=== PATIENT | male | born 1980 | race Caucasian/White ===

== ENCOUNTER 2018-02-08 19:07 | Emergency (ER) | payer MEDICAID, OTHER ==
--- NOTE | 2018-02-08 19:35 | C.PDOC ---
History Of Present Illness 37 year old male presents to the ED for evaluation of chest discomfort which has been intermittent for the past 2-3 days. Patient reports history of belching. He states the pain seems to be coming from his stomach. He denies fever, chills, and has no other complaints at this time. Chief Complaint (Nursing): Chest Pain History Per: Patient History/Exam Limitations: no limitations Onset/Duration Of Symptoms: Days (2-3), Intermittent Episodes Current Symptoms Are (Timing): Still Present Quality: Other (discomfort ) Additional History Per: Patient Past Medical History Reviewed: Historical Data, Nursing Documentation, Vital Signs Vital Signs: Last Vital Signs Temp 98 F 02/08/18 20:56 Pulse 97 H 02/08/18 20:56 Resp 19 02/08/18 20:56 BP 156/58 H 02/08/18 20:56 Pulse Ox 98 02/08/18 20:56 - Medical History PMH: Asthma, Back Problems Surgical History: No Surg Hx Family History: States: Unknown Family Hx - Social History Hx Tobacco Use: No Hx Alcohol Use: No Hx Substance Use: No - Immunization History Hx Tetanus Toxoid Vaccination: No Hx Influenza Vaccination: No Hx Pneumococcal Vaccination: No Review Of Systems Constitutional: Negative for: Fever, Chills Cardiovascular: Positive for: Other (chest discomfort ) Physical Exam - Physical Exam Appears: Non-toxic, No Acute Distress, Other (markedly obese ) Skin: Normal Color, Warm, Dry Head: Atraumatic, Normacephalic Eye(s): bilateral: Normal Inspection Oral Mucosa: Moist Neck: Supple Chest: Symmetrical, No Deformity, No Tenderness Cardiovascular: Rhythm Regular, No Murmur Respiratory: Normal Breath Sounds, No Rales, No Rhonchi, No Wheezing Gastrointestinal/Abdominal: Soft, No Tenderness, No Guarding, No Rebound Extremity: Normal ROM, Capillary Refill (less than 2 seconds ) Neurological/Psych: Oriented x3, Normal Speech, Normal Cognition Gait: Steady ED Course And Treatment - Laboratory Results Result Diagrams: 02/08/18 19:57 02/08/18 19:57 ECG: Interpreted By Me, Viewed By Me ECG Rhythm: Sinus Tachycardia, Nonspecific Changes ECG Interpretation: Abnormal Interpretation Of ECG: Sinus tachycardia, t wave flattening lateral leads, abnormal tracings Rate From EC O2 Sat by Pulse Oximetry: 99 (on RA) Pulse Ox Interpretation: Normal Progress Note: Bloodwork and EKG ordered and reviewed. Disposition Counseled Patient/Family Regarding: Diagnosis - Disposition Referrals: [facility] [Outside] Disposition: HOME/ ROUTINE Disposition Time: 21:31 Condition: STABLE Prescriptions: Pantoprazole Sodium [Protonix] 40 mg PO DAILY #14 ect Sucralfate [Carafate] 1 gm PO BID #20 tab Instructions: Acid Reflux (Gastroesophageal Reflux Disease), Adult (DC) Forms: [employer] (Guyanese) - POA Present On Arrival: None - Clinical Impression Clinical Impression: GERD (gastroesophageal reflux disease) - Scribe Statement The provider has reviewed the documentation as recorded by the Scribe (Griselda Wei) Provider Attestation: All medical record entries made by the Scribe were at my direction and personally dictated by me. I have reviewed the chart and agree that the record accurately reflects my personal performance of the history, physical exam, medical decision making, and the department course for this patient. I have also personally directed, reviewed, and agree with the discharge instructions and disposition.
[2018-02-08 20:00] LABS: BASO # 0.1 K/uL (0.0-0.2); BASO % 0.6 % (0.0-2.0); EOS # 0.1 K/uL (0.0-0.7); EOS % 0.5 % (0.0-4.0); HEMOGLOBIN 15.1 g/dL (12.0-18.0); LYMPH # 2.5 K/uL (1.0-4.3); LYMPH % 25.1 % (20.0-40.0); MEAN CELL VOLUME 84.5 fL (80.0-94.0); MEAN CORPUSCULAR HGB CONC 34.4 g/dL (33.0-37.0); MEAN PLATELET VOLUME 8.1 fL (7.2-11.7); MONO # 0.7 K/uL (0.0-0.8); NEUT # 6.6 K/uL (1.8-7.0); NEUT % 66.8 % (50.0-75.0); RBC 5.2 Mil/uL (4.40-5.90); RED CELL DISTRIBUTION WIDTH 14.1 % (11.5-14.5); WHITE BLOOD COUNT 9.8 K/uL (4.8-10.8)
[2018-02-08 20:12] LABS: ALB/GLOB RATIO 1.2 (1.0-2.1); ALBUMIN 5.1 g/dL (3.5-5.0); ALT/SGPT 88 U/L (21-72); AST/SGOT 54 U/L (17-59); BLOOD UREA NITROGEN 12 mg/dL (9-20); CALCIUM 9.6 mg/dl (8.6-10.4); GFR AFRICAN-AMERICAN > 60; GFR NON-AFRICAN AMERICAN > 60; LIPASE 115 U/L (23-300)
[2018-02-08] MEDS ORDERED: Pantoprazole 40 mg EC Tab PO STA (20:42)
[2018-02-08] MEDS ORDERED: Sucralfate 1 gm/10 ml Oral Susp UD PO STA (20:44)
[2018-02-08] MEDS ORDERED: Sucralfate 1 gm/10 ml Oral Susp UD ONE (20:50)
[2018-02-08] MEDS ORDERED: Pantoprazole 40 mg EC Tab PO ONE (20:50)
[2018-02-08 20:58] VITALS: BP 156/58; PULSE 97; RESP 19; TEMP 98
[2018-02-08 21:34] VITALS: O2SAT 99
--- NOTE | 2018-02-09 12:02 | CARD ---
APPROVED REPORT EKG Measurement Heart [id number] <Conclusion> Sinus tachycardia Nonspecific T wave abnormality Abnormal ECG
== END 2018-02-08 21:46 | disposition home or self-care (01) ==
LOC: C.ER 19:07
DX: K21.9 Gastro-esophageal reflux disease without esophagitis (principal)

== ENCOUNTER 2018-11-02 11:43 | Inpatient (IN) | payer MEDICAID ==
[2018-11-02] MEDS ORDERED: Aspirin 325 mg EC Tablets PO STA (13:12)
[2018-11-02] MEDS ORDERED: Aspirin 325 mg EC Tablets PO ONE (13:48)
--- NOTE | 2018-11-02 13:49 | RAD ---
Date of service: 11/02/2018 PROCEDURE: CHEST RADIOGRAPH, 1 VIEW HISTORY: SOB COMPARISON: None available. FINDINGS: LUNGS: Evaluation technically limited due to patient body habitus. Right apex obscured by patient's mandible. PLEURA: No pneumothorax or pleural fluid seen. CARDIOVASCULAR: No aortic atherosclerotic calcification present. Normal. OSSEOUS STRUCTURES: No significant abnormalities. VISUALIZED UPPER ABDOMEN: Normal. OTHER FINDINGS: None. IMPRESSION: No active disease.
[2018-11-02 14:44] LABS: BASO % 0.3 % (0.0-2.0); EOS % 0.3 % (0.0-4.0); LYMPH # 1.8 K/uL (1.0-4.3); LYMPH % 22.9 % (20.0-40.0); MEAN CORPUSCULAR HEMOGLOBIN 29.4 pg (27.0-31.0); MEAN CORPUSCULAR HGB CONC 33.9 g/dL (33.0-37.0); MEAN PLATELET VOLUME 8.3 fL (7.2-11.7); MONO # 0.5 K/uL (0.0-0.8); MONO % 6.2 % (0.0-10.0); NEUT # 5.5 K/uL (1.8-7.0); NEUT % 70.3 % (50.0-75.0); NRBC % 0.1 % (0.0-2.0); RBC 5.11 Mil/uL (4.40-5.90); RED CELL DISTRIBUTION WIDTH 14.1 % (11.5-14.5); WHITE BLOOD COUNT 7.8 K/uL (4.8-10.8)
[2018-11-02 14:46] LABS: MEAN CELL VOLUME 86.7 fL (80.0-94.0)
[2018-11-02 15:04] LABS: ALB/GLOB RATIO 1.3 (1.0-2.1); ALBUMIN 4.6 g/dL (3.5-5.0); ALT/SGPT 57 U/L (21-72); AST/SGOT 48 U/L (17-59); BLOOD UREA NITROGEN 12 mg/dL (9-20); CALCIUM 9.2 mg/dl (8.6-10.4); GFR NON-AFRICAN AMERICAN > 60
[2018-11-02 15:07] LABS: SQUAMOUS EPITHIAL < 1 /hpf (0-5); URINE BILIRUBIN NEGATIVE (NEGATIVE); URINE BLOOD NEGATIVE (NEGATIVE); URINE CLARITY Clear (Clear); URINE COLOR Yellow (YELLOW); URINE GLUCOSE (UA) NORMAL (Normal); URINE LEUKOCYTE ESTERASE NEG Leu/uL (Negative); URINE PROTEIN NEGATIVE (NEGATIVE); URINE UROBILINOGEN NORMAL mg/dL (0.2-1.0)
[2018-11-02 15:15] LABS: B-TYPE NATRIURETIC PEPTIDE 48.8 pg/mL (0-450)
[2018-11-02 15:16] LABS: BARBITURATES, UR NEGATIVE (NEGATIVE); BENZODIAZEPINES, UR NEGATIVE (NEGATIVE); OPIATES, UR NEGATIVE (NEGATIVE); PHENCYCLIDINE, UR NEGATIVE (NEGATIVE)
[2018-11-02 15:42] LABS: INR 1.1; PROTHROMBIN TIME 11.6 SECONDS (9.7-12.2)
[2018-11-02 15:50] VITALS: BMI 63.1
[2018-11-02] MEDS ORDERED: Iohexol 350mg/ml 100 ML ONE (15:57)
--- NOTE | 2018-11-02 17:30 | CT ---
Date of service: 11/02/2018 CTA chest PE protocol Indication: sob, + d-dimer Technique: Contiguous axial images were obtained through the chest with intravenous contrast enhancement. Sagittal and coronal reconstructions were generated and reviewed. This CT exam was performed using 1 or more of the following dose reduction techniques: Automated exposure control, adjustment of the MAA and/or kV according to patient size, and/or use of iterative reconstruction technique. IV contrast: 100 cc Visipaque 320 Radiation dose (DLP): 566.11 MGy-cm. Comparison: Chest x-ray performed 11/02/18 Findings: Examination limited by patient motion, habitus, as well as streak artifact. Please note patient experienced episode of emesis following injection of IV contrast. Visualized portions of the inferior thyroid gland appear unremarkable. The mediastinal and hilar vascular structures appear within normal limits. The heart appears within normal limits of size. There is suboptimal opacification of the pulmonary arteries as well extensive streak artifact precludes adequate evaluation for pulmonary embolus. Hypoinflation. No focal consolidation. No pleural effusion. No pneumothorax. 14 mm probable splenule. Limited visualized portions of the upper abdomen appear otherwise grossly unremarkable. No acute osseous abnormality is detected. Impression: Examination limited by patient motion, habitus, as well as streak artifact. Please note patient experienced episode of emesis following injection of IV contrast. There is suboptimal opacification of the pulmonary arteries as well extensive streak artifact precludes adequate evaluation for pulmonary embolus. Hypoinflation. No focal consolidation.
--- NOTE | 2018-11-02 17:42 | C.PDOC ---
History Of Present Illness 38 year old male presents to ED with complaint of palpitations and SOB for 3 days. Patient lives with his . He is morbidly obese and snores. Patient denies alcohol abuse, nausea, and vomiting. Time Seen by Provider: 11/02/18 13:03 Chief Complaint (Nursing): Palpitations History Per: Patient History/Exam Limitations: no limitations Onset/Duration Of Symptoms: Days (3) Current Symptoms Are (Timing): Still Present Associated Symptoms: Other (SOB). denies: Nausea Past Medical History Reviewed: Historical Data, Nursing Documentation, Vital Signs Vital Signs: Last Vital Signs Temp 99.8 F H 11/02/18 11:53 Pulse 82 11/02/18 16:05 Resp 21 11/02/18 16:05 BP 137/92 H 11/02/18 16:05 Pulse Ox 96 11/02/18 16:05 - Medical History PMH: Asthma, Back Problems Surgical History: No Surg Hx Family History: States: Unknown Family Hx - Social History Hx Tobacco Use: No Hx Alcohol Use: No Hx Substance Use: No - Immunization History Hx Tetanus Toxoid Vaccination: No Hx Influenza Vaccination: No Hx Pneumococcal Vaccination: No Review Of Systems Constitutional: Negative for: Fever, Chills, Weakness Cardiovascular: Positive for: Palpitations Respiratory: Positive for: Shortness of Breath. Negative for: Cough Gastrointestinal: Negative for: Nausea, Vomiting Neurological: Negative for: Weakness, Numbness, Dizziness Psych: Positive for: Anxiety (related to social issues) Physical Exam - Physical Exam Appears: Well, Non-toxic, No Acute Distress, Other (morbidly obese, plethoric face) Skin: Normal Color, Warm, Dry Head: Atraumatic, Normacephalic Neck: Normal, Supple Chest: Symmetrical, No Deformity Cardiovascular: JVD Respiratory: No Accessory Muscle Use Gastrointestinal/Abdominal: Soft, No Tenderness Back: Other (questionable buffalo hump) Extremity: Capillary Refill (< 2 seconds), Other (lower extremities obese with 1/4 pitting edema) Neurological/Psych: Oriented x3, Normal Speech, Normal Cognition ED Course And Treatment - Laboratory Results Result Diagrams: 11/02/18 14:41 11/02/18 14:41 Lab Results: PT 11.6 SECONDS (9.7-12.2) 11/02/18 14:41 INR 1.1 11/02/18 14:41 APTT 33 SECONDS (21-34) 11/02/18 14:41 D-Dimer, Quantitative 330 ng/mlDDU (0-243) H 11/02/18 14:41 Troponin I < 0.0120 ng/mL (0.00-0.120) 11/02/18 14:41 NT-Pro-B Natriuret Pep 48.8 pg/mL (0-450) 11/02/18 14:41 Total Bilirubin 0.4 mg/dL (0.2-1.3) 11/02/18 14:41 AST 48 U/L (17-59) 11/02/18 14:41 ALT 57 U/L (21-72) 11/02/18 14:41 Alkaline Phosphatase 90 U/L (38-126) 11/02/18 14:41 Total Protein 8.1 g/dL (6.3-8.3) 11/02/18 14:41 Albumin 4.6 g/dL (3.5-5.0) 11/02/18 14:41 Globulin 3.5 gm/dL (2.2-3.9) 11/02/18 14:41 Albumin/Globulin Ratio 1.3 (1.0-2.1) 11/02/18 14:41 Urine Color Yellow (YELLOW) 11/02/18 14:42 Urine Clarity Clear (Clear) 11/02/18 14:42 Urine pH 6.0 (5.0-8.0) 11/02/18 14:42 Ur Specific [place] 1.019 (1.003-1.030) 11/02/18 14:42 Urine Protein Negative mg/dL (NEGATIVE) 11/02/18 14:42 Urine Glucose (UA) Normal mg/dL (Normal) 11/02/18 14:42 Urine Ketones Negative mg/dL (NEGATIVE) 11/02/18 14:42 Urine Blood Negative (NEGATIVE) 11/02/18 14:42 Urine Nitrate Negative (NEGATIVE) 11/02/18 14:42 Urine Bilirubin Negative (NEGATIVE) 11/02/18 14:42 Urine Urobilinogen Normal mg/dL (0.2-1.0) 11/02/18 14:42 Ur Leukocyte Esterase Neg Shyam/uL (Negative) 11/02/18 14:42 Urine WBC (Auto) < 1 /hpf (0-5) 11/02/18 14:42 Urine RBC (Auto) 1 /hpf (0-3) 11/02/18 14:42 Ur Squamous Epith Cells < 1 /hpf (0-5) 11/02/18 14:42 O2 Sat by Pulse Oximetry: 96 (RA) - CT Scan/US CTA Chest CT/US Interpretation: Impression: Examination limited by patient motion, habitus, as well as streak artifact. Please note patient experienced episode of emesis following injection of IV contrast. There is suboptimal opacification of the pulmonary arteries as well extensive streak artifact precludes adequate evaluation for pulmonary embolus. Hypoinflation. No focal consolidation. Progress Note: Angio chest, EKG, and CXR ordered for patient. Labs ordered with drug screen and UA for patient. Aspirin PO and Lasix IVP given to patient. Medical Decision Making Medical Decision Making: high risk for ACS with MARLENE, leg edema, and + EKG changes of T^ inversions V4-V6 d-dimer slightly elevated PE study neg. heparin tx deferred JVD, leg edema, whole body fluid overloaded lasix 20 IV given underlying MARLENE probable. consider card echo Disposition Doctor Will See Patient In The: Hospital Counseled Patient/Family Regarding: Studies Performed, Diagnosis - Disposition Disposition: HOSPITALIZED Disposition Time: 18:34 Condition: GOOD Forms: [employer] (Czech) - Clinical Impression Clinical Impression: Palpitations, ST segment changes on electrocardiogram - Scribe Statement The provider has reviewed the documentation as recorded by the Scribe (Layla Cazares) All medical record entries made by the Scribe were at my direction and personally dictated by me. I have reviewed the chart and agree that the record accurately reflects my personal performance of the history, physical exam, medical decision making, and the department course for this patient. I have also personally directed, reviewed, and agree with the discharge instructions and disposition.
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
[2018-11-02 20:14] LABS: CK-MB 1.08 ng/mL (0.0-3.38)
[2018-11-03 03:03] LABS: BASO # 0.1 K/uL (0.0-0.2); BASO % 1.3 % (0.0-2.0); EOS # 0.1 K/uL (0.0-0.7); EOS % 0.6 % (0.0-4.0); HEMOGLOBIN 14.3 g/dL (12.0-18.0); LYMPH # 2.9 K/uL (1.0-4.3); LYMPH % 28.7 % (20.0-40.0); MEAN CELL VOLUME 86.2 fL (80.0-94.0); MEAN CORPUSCULAR HEMOGLOBIN 28.8 pg (27.0-31.0); MEAN CORPUSCULAR HGB CONC 33.4 g/dL (33.0-37.0); MEAN PLATELET VOLUME 8.1 fL (7.2-11.7); MONO # 0.7 K/uL (0.0-0.8); MONO % 6.6 % (0.0-10.0); NEUT # 6.3 K/uL (1.8-7.0); NEUT % 62.8 % (50.0-75.0); RBC 4.96 Mil/uL (4.40-5.90); RED CELL DISTRIBUTION WIDTH 14.3 % (11.5-14.5); WHITE BLOOD COUNT 9.9 K/uL (4.8-10.8)
[2018-11-03 03:19] LABS: ALB/GLOB RATIO 1.3 (1.0-2.1); ALBUMIN 4.3 g/dL (3.5-5.0); ALT/SGPT 60 U/L (21-72); AST/SGOT 44 U/L (17-59); BLOOD UREA NITROGEN 11 mg/dL (9-20); CALCIUM 9.4 mg/dl (8.6-10.4); GFR NON-AFRICAN AMERICAN > 60; HDL CHOLESTEROL 34 mg/dL (30-70)
[2018-11-03 03:29] LABS: CK-MB 1.02 ng/mL (0.0-3.38)
[2018-11-03 03:30] LABS: LDL CHOLESTEROL 121 mg/dL (0-129)
--- NOTE | 2018-11-03 06:26 | CP.PCM.CON ---
<RajeshDale Jaylan - Last Filed: 11/03/18 16:53> History of Present Illness - History of Present Illness History of Present Illness: Dale Mena PGY1, Consult Note for Dr Laws Pt is a 38 yo male with morbid obesity and history of anxiety who presents to the ED with a 3 day history of palpitations. Pt states the palpitations have kept him up at night and he has had trouble sleeping. Pt denies any associated chest pain or SOB. Pt denies a history of cardiac medical problems. Pt denies a past medical history of HTN, HLD, or ND in the past. Past Patient History - Infectious Disease Hx of Infectious Diseases: None - Tetanus Immunizations Tetanus Immunization: Unknown - Past Medical History & Family History Past Medical History?: Yes Past Family History: Reviewed and not pertinent - Past Social History Smoking Status: Never Smoked Chewing Tobacco Use: No Cigar Use: No Alcohol: None Drugs: Denies Home Situation {Lives}: With Family (girlfirnd, children) - PULMONARY Hx Asthma: Yes - PSYCHIATRIC Hx Substance Use: No - SURGICAL HISTORY Hx Surgeries: No - ANESTHESIA Hx Anesthesia: No Meds Allergies/Adverse Reactions: Allergies Allergy/AdvReac Type Severity Reaction Status Date / Time No Known Allergies Allergy Verified 11/02/18 11:56 - Medications Medications: Current Medications Aspirin (Ecotrin) 81 mg PO DAILY [facility] Heparin Sodium (Porcine) (Heparin) 5,000 units SC Q8 [facility] Last Admin: 11/02/18 22:16 Dose: 5,000 units Rosuvastatin Calcium (Crestor) 5 mg PO HS [facility] Last Admin: 11/02/18 22:16 Dose: 5 mg Physical Exam - Constitutional Appears: No Acute Distress - Head Exam Head Exam: ATRAUMATIC, NORMOCEPHALIC - Eye Exam Eye Exam: EOMI - ENT Exam ENT Exam: Mucous Membranes Moist - Respiratory Exam Respiratory Exam: Clear to Auscultation Bilateral, NORMAL BREATHING PATTERN. absent: Accessory Muscle Use - Cardiovascular Exam Cardiovascular Exam: +S1, +S2. absent: Diastolic murmur, Systolic Murmur - GI/Abdominal Exam GI & Abdominal Exam: Normal Bowel Sounds, Soft - Extremities Exam Extremities exam: Positive for: normal inspection. Negative for: calf tenderness, full ROM, pedal edema, tenderness - Neurological Exam Neurological exam: Alert, Oriented x3 - Skin Skin Exam: Dry, Intact, Warm Results - Vital Signs Recent Vital Signs: Last Vital Signs Temp 98.7 F 11/03/18 00:00 Pulse 75 11/03/18 04:09 Resp 20 11/03/18 00:00 BP 110/71 11/03/18 00:00 Pulse Ox 98 11/03/18 00:00 - Labs Result Diagrams: 11/03/18 02:56 11/03/18 02:56 Labs: Laboratory Results - last 24 hr 11/02/18 11/02/18 11/02/18 14:41 14:41 14:41 WBC 7.8 RBC 5.11 Hgb 15.0 Hct 44.3 MCV 86.7 D MCH 29.4 MCHC 33.9 RDW 14.1 Plt Count 307 MPV 8.3 Neut % (Auto) 70.3 Lymph % (Auto) 22.9 [place] % (Auto) 6.2 Eos % (Auto) 0.3 Baso % (Auto) 0.3 Neut # (Auto) 5.5 Lymph # (Auto) 1.8 [place] # (Auto) 0.5 Eos # (Auto) 0.0 Baso # (Auto) 0.0 PT 11.6 INR 1.1 APTT 33 D-Dimer, Quantitative 330 H Sodium 139 Potassium 4.3 Chloride 103 Carbon Dioxide 27 Anion Gap 12 BUN 12 Creatinine 0.9 Est GFR ( Amer) > 60 Est GFR (Non-Af Amer) > 60 Random Glucose 108 Hemoglobin A1c Calcium 9.2 Phosphorus Magnesium Total Bilirubin 0.4 AST 48 ALT 57 Alkaline Phosphatase 90 Total Creatine Kinase CK-MB (Mass) Troponin I < 0.0120 NT-Pro-B Natriuret Pep 48.8 Total Protein 8.1 Albumin 4.6 Globulin 3.5 Albumin/Globulin Ratio 1.3 Triglycerides Cholesterol LDL Cholesterol Direct HDL Cholesterol Free T4 TSH 3rd Generation Urine Color Urine Clarity Urine pH Ur Specific [place] Urine Protein Urine Glucose (UA) Urine Ketones Urine Blood Urine Nitrate Urine Bilirubin Urine Urobilinogen Ur Leukocyte Esterase Urine WBC (Auto) Urine RBC (Auto) Ur Squamous Epith Cells Urine Opiates Screen Urine Methadone Screen Ur Barbiturates Screen Ur Phencyclidine Scrn Ur Amphetamines Screen U Benzodiazepines Scrn U Oth Cocaine Metabols U Cannabinoids Screen 11/02/18 11/02/18 11/02/18 14:41 14:42 14:42 WBC RBC Hgb Hct MCV MCH MCHC RDW Plt Count MPV Neut % (Auto) Lymph % (Auto) [place] % (Auto) Eos % (Auto) Baso % (Auto) Neut # (Auto) Lymph # (Auto) [place] # (Auto) Eos # (Auto) Baso # (Auto) PT INR APTT D-Dimer, Quantitative Sodium Potassium Chloride Carbon Dioxide Anion Gap BUN Creatinine Est GFR ( Amer) Est GFR (Non-Af Amer) Random Glucose Hemoglobin A1c 6.2 Calcium Phosphorus Magnesium Total Bilirubin AST ALT Alkaline Phosphatase Total Creatine Kinase CK-MB (Mass) Troponin I NT-Pro-B Natriuret Pep Total Protein Albumin Globulin Albumin/Globulin Ratio Triglycerides Cholesterol LDL Cholesterol Direct HDL Cholesterol Free T4 TSH 3rd Generation Urine Color Yellow Urine Clarity Clear Urine pH 6.0 Ur Specific [place] 1.019 Urine Protein Negative Urine Glucose (UA) Normal Urine Ketones Negative Urine Blood Negative Urine Nitrate Negative Urine Bilirubin Negative Urine Urobilinogen Normal Ur Leukocyte Esterase Neg Urine WBC (Auto) < 1 Urine RBC (Auto) 1 Ur Squamous Epith Cells < 1 Urine Opiates Screen Negative Urine Methadone Screen Negative Ur Barbiturates Screen Negative Ur Phencyclidine Scrn Negative Ur Amphetamines Screen Negative U Benzodiazepines Scrn Negative U Oth Cocaine Metabols Negative U Cannabinoids Screen Negative 11/02/18 11/02/18 11/03/18 19:32 21:16 02:56 WBC RBC Hgb Hct MCV MCH MCHC RDW Plt Count MPV Neut % (Auto) Lymph % (Auto) [place] % (Auto) Eos % (Auto) Baso % (Auto) Neut # (Auto) Lymph # (Auto) [place] # (Auto) Eos # (Auto) Baso # (Auto) PT INR APTT D-Dimer, Quantitative Sodium 138 Potassium 3.9 Chloride 101 Carbon Dioxide 32 H Anion Gap 8 L BUN 11 Creatinine 0.8 Est GFR ( Amer) > 60 Est GFR (Non-Af Amer) > 60 Random Glucose 99 Hemoglobin A1c Calcium 9.4 Phosphorus 3.6 Magnesium 2.1 2.1 Total Bilirubin 0.4 AST 44 ALT 60 Alkaline Phosphatase 86 Total Creatine Kinase 147 CK-MB (Mass) 1.08 Troponin I < 0.0120 NT-Pro-B Natriuret Pep Total Protein 7.6 Albumin 4.3 Globulin 3.3 Albumin/Globulin Ratio 1.3 Triglycerides 76 Cholesterol 163 LDL Cholesterol Direct 121 HDL Cholesterol 34 Free T4 TSH 3rd Generation Urine Color Urine Clarity Urine pH Ur Specific [place] Urine Protein Urine Glucose (UA) Urine Ketones Urine Blood Urine Nitrate Urine Bilirubin Urine Urobilinogen Ur Leukocyte Esterase Urine WBC (Auto) Urine RBC (Auto) Ur Squamous Epith Cells Urine Opiates Screen Urine Methadone Screen Ur Barbiturates Screen Ur Phencyclidine Scrn Ur Amphetamines Screen U Benzodiazepines Scrn U Oth Cocaine Metabols U Cannabinoids Screen 11/03/18 11/03/18 11/03/18 02:56 02:56 02:56 WBC 9.9 RBC 4.96 Hgb 14.3 Hct 42.8 MCV 86.2 MCH 28.8 MCHC 33.4 RDW 14.3 Plt Count 277 MPV 8.1 Neut % (Auto) 62.8 Lymph % (Auto) 28.7 [place] % (Auto) 6.6 Eos % (Auto) 0.6 Baso % (Auto) 1.3 Neut # (Auto) 6.3 Lymph # (Auto) 2.9 [place] # (Auto) 0.7 Eos # (Auto) 0.1 Baso # (Auto) 0.1 PT INR APTT D-Dimer, Quantitative Sodium Potassium Chloride Carbon Dioxide Anion Gap BUN Creatinine Est GFR ( Amer) Est GFR (Non-Af Amer) Random Glucose Hemoglobin A1c Calcium Phosphorus Magnesium Total Bilirubin AST ALT Alkaline Phosphatase Total Creatine Kinase 141 CK-MB (Mass) 1.02 Troponin I < 0.0120 NT-Pro-B Natriuret Pep Total Protein Albumin Globulin Albumin/Globulin Ratio Triglycerides Cholesterol LDL Cholesterol Direct HDL Cholesterol Free T4 0.78 TSH 3rd Generation 1.14 Urine Color Urine Clarity Urine pH Ur Specific [place] Urine Protein Urine Glucose (UA) Urine Ketones Urine Blood Urine Nitrate Urine Bilirubin Urine Urobilinogen Ur Leukocyte Esterase Urine WBC (Auto) Urine RBC (Auto) Ur Squamous Epith Cells Urine Opiates Screen Urine Methadone Screen Ur Barbiturates Screen Ur Phencyclidine Scrn Ur Amphetamines Screen U Benzodiazepines Scrn U Oth Cocaine Metabols U Cannabinoids Screen Assessment & Plan - Assessment and Plan (Free Text) Assessment: Anxiety Palpitations Plan: EKG free of SVT, a fib, or tachycardia UDS negative ECHO follow up rec medications to control his anxiety Pt seen, examined, assessment and plan discussed with Dr Veto Mena PGY1 - Date & Time Date: 11/03/18 Time: 06:27 <Enrique Laws - Last Filed: 11/04/18 13:48> Meds - Medications Medications: Current Medications Acetaminophen (Tylenol 325mg Tab) 650 mg PO Q6 PRN PRN Reason: Pain, moderate (4-7) Last Admin: 11/03/18 13:38 Dose: 650 mg Aspirin (Ecotrin) 81 mg PO DAILY [facility] Last Admin: 11/04/18 10:15 Dose: 81 mg Carbamide Peroxide (Debrox Ear Drops) 0 ml AU BID [facility] Last Admin: 11/04/18 11:00 Dose: 5 drop Gabapentin (Neurontin) 300 mg PO TID [facility] Hydroxyzine HCl (Atarax) 25 mg PO Q6 PRN PRN Reason: Agitation Last Admin: 11/03/18 22:31 Dose: 25 mg Paroxetine HCl (Paxil) 40 mg PO DAILY [facility] Pneumococcal Polyvalent Vaccine (Pneumovax 23 Vaccine) 0.5 ml IM .ONCE ONE Stop: 11/05/18 10:01 Rosuvastatin Calcium (Crestor) 5 mg PO HS [facility] Last Admin: 11/03/18 22:31 Dose: 5 mg Trazodone HCl (Desyrel) 50 mg PO HS [facility] Last Admin: 11/03/18 22:33 Dose: Not Given Results - Vital Signs Recent Vital Signs: Last Vital Signs Temp 98.6 F 11/03/18 16:56 Pulse 83 11/03/18 16:56 Resp 20 11/03/18 22:36 BP 140/87 11/03/18 16:56 Pulse Ox 97 11/03/18 16:56 - Labs Result Diagrams: 11/04/18 07:19 11/04/18 07:19 Labs: Laboratory Results - last 24 hr 11/04/18 11/04/18 07:19 07:19 WBC 7.3 RBC 5.26 Hgb 15.1 Hct 45.5 MCV 86.6 MCH 28.7 MCHC 33.1 RDW 14.2 Plt Count 303 MPV 8.1 Neut % (Auto) 55.8 Lymph % (Auto) 36.9 [place] % (Auto) 6.0 Eos % (Auto) 0.7 Baso % (Auto) 0.6 Neut # (Auto) 4.1 Lymph # (Auto) 2.7 [place] # (Auto) 0.4 Eos # (Auto) 0.1 Baso # (Auto) 0.0 Sodium 138 Potassium 4.0 Chloride 102 Carbon Dioxide 32 H Anion Gap 8 L BUN 13 Creatinine 0.9 Est GFR ( Amer) > 60 Est GFR (Non-Af Amer) > 60 Random Glucose 91 Calcium 9.3 Phosphorus 3.6 Magnesium 2.2 Total Bilirubin 0.4 AST 61 H D ALT 63 Alkaline Phosphatase 89 Total Protein 8.1 Albumin 4.6 Globulin 3.5 Albumin/Globulin Ratio 1.3 Attending/Attestation - Attestation I have personally seen and examined this patient.: Yes I have fully participated in the care of the patient.: Yes I have reviewed all pertinent clinical information: Yes Notes (Text): 11/04/18 13:47 Mr. Martin is a 38-year-old male that we were consulted for evaluation of symptoms of some mild atypical chest discomfort accompanied with palpitations patiently apparently had lost his father recently and did not go through the process of grievance at the time of my evaluation patient denied having any chest pains EKG essentially was unremarkable echocardiogram done showed normal ejection fraction with no wall motion abnormalities patient otherwise denied having any other symptoms associated with underlying ischemia or coronary artery disease clinically no other cardiovascular risk factors and history and exam consistent most likely secondary to underlying psychological stress and anxiety disorder which needs to be addressed. From cardiac standpoint he needs no further testing and can proceed with psych rx plz reconsult if needed
--- NOTE | 2018-11-03 07:07 | CP.PCM.PN ---
Subjective - Date & Time of Evaluation Date of Evaluation: 11/03/18 Time of Evaluation: 07:07 - Subjective Subjective: Progress Note for Hospitalist service Patient seen and evaluated at bedside. He states he feels as though his right ear is clogged and complains of a slight headache. He states that his palpitations usually last a few seconds then resolve on their own. He admits to recent of his father in May but states he has not been able to grieve fully because he has to take care of his family. He denies fevers, chills, dizziness, chest pain, shortness of breath, cough, abdominal pain, nausea, vomiting, diarrhea, leg pain. Objective - Vital Signs/Intake and Output Vital Signs (last 24 hours): Temp Pulse Resp BP Pulse Ox 98.7 F 75 20 110/71 98 11/03/18 00:00 11/03/18 04:09 11/03/18 00:00 11/03/18 00:00 11/03/18 00:00 Intake and Output: 11/03/18 11/03/18 06:59 18:59 Intake Total 720 Balance 720 - Medications Medications: Current Medications Aspirin (Ecotrin) 81 mg PO DAILY [facility] Heparin Sodium (Porcine) (Heparin) 5,000 units SC Q8 [facility] Last Admin: 11/03/18 06:39 Dose: 5,000 units Rosuvastatin Calcium (Crestor) 5 mg PO HS [facility] Last Admin: 11/02/18 22:16 Dose: 5 mg - Labs Labs: 11/03/18 02:56 11/03/18 02:56 PT 11.6 SECONDS (9.7-12.2) 11/02/18 14:41 INR 1.1 11/02/18 14:41 APTT 33 SECONDS (21-34) 11/02/18 14:41 - Constitutional Appears: Well, Other (Tearful when talking about of his father) - Head Exam Head Exam: ATRAUMATIC, NORMOCEPHALIC - Eye Exam Eye Exam: EOMI Pupil Exam: PERRL - ENT Exam ENT Exam: Mucous Membranes Moist - Neck Exam Neck Exam: Full ROM - Respiratory Exam Respiratory Exam: Clear to Ausculation Bilateral, NORMAL BREATHING PATTERN - Cardiovascular Exam Cardiovascular Exam: REGULAR RHYTHM, +S1, +S2 - GI/Abdominal Exam GI & Abdominal Exam: Soft, Normal Bowel Sounds. absent: Distended, Firm, Guarding, Rigid, Tenderness, Organomegaly - Extremities Exam Extremities Exam: absent: Calf Tenderness, Pedal Edema - Neurological Exam Neurological Exam: Alert, Awake, Oriented x3 - Psychiatric Exam Psychiatric exam: Anxious Additional comments: Tearful - Skin Skin Exam: Dry, Intact, Warm Assessment and Plan - Assessment and Plan (Free Text) Assessment: 38 year old male with morbid obesity and history of anxiety and depression who presents for 3 day history of palpitations. Plan: Palpitations, rule out acute coronary syndrome Initial EKG: NSR with T wave inversions in V3-V6 Troponins x3 negative D-dimer elevated at 330 BNP 48 CXR: no active disease CTA chest: no PE Lower extremity Doppler: negative ECHO: report pending TSH T4 wnl ASA 81mg PO EKG reveal some flipped T wave changes in V3-V[address] Laws consulted, help appreciated Medically stable to be transferred to Psych floor as per Dr. Laws Morbid obesity Lipid panel TG 163 LDL 121 HDL 34 TG 76 Heart healthy diet A1c 6.2 Extensive discussion with patient regarding diet and lifestyle changes Excessive noctural snoring and daytime sleepiness Manager Star Dr. Grover consulted, who recommended outpatient sleep study to evaluate for obstructive sleep apnea. Anxiety and depression Psychiatrist Dr. Myles consulted, help appreciated Agreed to take patient when medically stable. Dispo: Stable to go to Psych floor for depression
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
--- NOTE | 2018-11-03 12:00 | VASCLAB ---
Date of service: 11/03/2018 PROCEDURE: Lower Extremity Venous Duplex Exam. HISTORY: leg edema PRIORS: None. TECHNIQUE: Bilateral common femoral, femoral, popliteal and posterior tibial, peroneal and great saphenous veins were evaluated. Flow was assessed with color Doppler, compressibility, assessment of phasic flow and augmentation response. Report prepared by Florin Roe, JEREMIAS, RVT FINDINGS: RIGHT: 1. Common Femoral Vein: 1.1. Compressibility - Fully compressible: Thrombus - None : Flow - Phasic: Augmentation -Normal: Reflux - None. 2. Femoral Vein: 2.1. Compressibility - Fully compressible: Thrombus - None : Flow - Phasic: Augmentation -Normal: Reflux - None. 3. Popliteal Vein: 3.1. Compressibility - Fully compressible: Thrombus - None : Flow - Phasic: Augmentation -Normal: Reflux - None. 4. Posterior Tibial Vein: 4.1. Compressibility - Fully compressible: Thrombus - None: Flow - Phasic: Augmentation -Normal: Reflux - None. 5. Peroneal Vein: 5.1. Compressibility - Fully compressible: Thrombus - None: Flow - Phasic: Augmentation -Normal: Reflux - None. 6. Great Saphenous Vein: 6.1. Compressibility - Fully compressible: Thrombus - None: Flow - Phasic: Augmentation - Normal: Reflux - None. LEFT: 1. Common Femoral Vein: 1.1. Compressibility - Fully compressible: Thrombus - None: Flow - Phasic: Augmentation -Normal: Reflux - None. 2. Femoral Vein: 2.1. Compressibility - Fully compressible: Thrombus - None: Flow - Phasic: Augmentation -Normal: Reflux - None. 3. Popliteal Vein: 3.1. Compressibility - Fully compressible: Thrombus - None : Flow - Phasic: Augmentation -Normal: Reflux - None. 4. Posterior Tibial Vein: 4.1. Compressibility - Fully compressible: Thrombus - None: Flow - Phasic: Augmentation -Normal: Reflux - None. 5. Peroneal Vein: 5.1. Compressibility - Fully compressible: Thrombus - None: Flow - Phasic: Augmentation -Normal: Reflux - None. 6. Great Saphenous Vein: 6.1. Compressibility - Fully compressible: Thrombus - None: Flow - Phasic: Augmentation - Normal: Reflux - None. OTHER FINDINGS: Right: None significant. Left: None significant. IMPRESSION: Right: No evidence of deep or superficial vein thrombosis of the right lower extremity. Normal valve function noted of the right side. Left: No evidence of deep or superficial vein thrombosis of the left lower extremity. Normal valve function noted of the left side.
[2018-11-03 12:32] LABS: ABG ALLEN TEST POS; ARTERIAL BLOOD GAS HCO3 26.9 mmol/L (21-28); ARTERIAL BLOOD GAS HEMOGLOBIN 14.5 g/dL (11.7-17.4); ARTERIAL BLOOD GAS O2 SAT 60.7 % (95-98); ARTERIAL BLOOD GAS PCO2 51 mm/Hg (35-45); ARTERIAL BLOOD GAS PH 7.38 (7.35-7.45); ARTERIAL BLOOD GAS PO2 30 mm/Hg (80-100); ARTERIAL BLOOD GAS TCO2 31.8 mmol/L (22-28)
[2018-11-03 16:57] VITALS: O2SAT 97
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
--- NOTE | 2018-11-03 21:54 | PCM.BM ---
<Bassam Oneal - Last Filed: 11/03/18 21:49> Treatment Plan Problems - Problems identified on initial assessmt Depression Date Initiated: 11/03/18 Time Initiated: 21:50 Assessment reference: NA Status: Active Anxiety Date Initiated: 11/03/18 Time Initiated: 21:50 Assessment reference: NA Status: Active Treatment assets and liabiliti Patient Assests: adapts well, educated, ADL independent, negotiates basic needs, cognitively intact Patient Liabilities: financial problems (Unemployed), dietary restrictions (Heart healthy diet), medical problems (Palpitaions,Elevated cholesterol, Obesity) - Milieu Protocol Maintain good personal hygiene: daily Encourage regular showers, daily Remind patient to perform daily oral care, every shift Assist patient to perform ADL's Conduct patient checks and document Observation sheet: Q15 minutes (For safety) Maintain personal safety: every shift Educate patient to report safety concerns to staff, every shift Monitor environment for contraband/sharps Medication safety: Monitor for expected outcome, potential side effects: every shift, Assess barriers to learning: every shift, Assess readiness for medication education: every shift <Rosa M Machado - Last Filed: 11/04/18 11:40> Family Contact Family involvement: Family/SO is involved Family contact: Patient declines to allow family contact at present - Goals for Treatment Patient goals for treatment: "I need to go home." Discharge/Continuing Care - Education Needs Education Needs: Patient Medication, Patient Coping Skills - Discharge Discharge Criteria: Tolerates medication w/o severe side effects, Free of Suicidal thoughts, Reduction of target symptoms Discharge to:: Home, With Family - Treatment Team Participation Discussed with Family/SO: No Was Patient/Family/SO present at Treatment Team Meeting: Yes
[2018-11-03 22:53] VITALS: RESP 20
--- NOTE | 2018-11-04 05:36 | CARD ---
APPROVED REPORT Date of service: 11/03/2018 EXAM: Two-dimensional and M-mode echocardiogram with Doppler and color Doppler. Other Information Quality : LimitedRhythm : Technically limited study due to body habitus. INDICATION Abnormal EKG/Arrhythmia Chest Pain Palpitations RISK FACTORS Obesity 2D DIMENSIONS IVSd1.2 (0.7-1.1cm)LVDd4.5 (3.9-5.9cm) PWd1.0 (0.7-1.1cm)LA Qpvpfm28 (18-58mL) LVDs2.8 (2.5-4.0cm)FS (%) 37.9 % LVEF (%)68.2 (>50%)LVEF (Shafer's)69.56 % M-Mode DIMENSIONS Left Atrium (MM)4.11 (2.5-4.0cm)IVSd0.97 (0.7-1.1cm) Aortic Root3.29 (2.2-3.7cm)LVDd5.65 (4.0-5.6cm) Aortic Cusp Exc.2.37 (1.5-2.0cm)PWd0.92 (0.7-1.1cm) FS (%) 42 %LVDs3.26 (2.0-3.8cm) LVEF (%)73 (>50%) Mitral Valve MV E Ckdkxpft68.0cm/sMV A Dratmuqv65.0cm/sE/A ratio1.4 TDI Lateral E' Peak V11.84cm/sMedial E' Peak V7.26cm/sE/Lateral E'7.7 E/Medial E'12.5 LEFT VENTRICLE The Left Ventricle is mildly dilated. There is normal left ventricular wall thickness. Left ventricle systolic function is normal. The Ejection Fraction is 65-70%. There is normal LV segmental wall motion. The left ventricular diastolic function is normal. RIGHT VENTRICLE The right ventricle is normal size. There is normal right ventricular wall thickness. The right ventricular systolic function is normal. ATRIA The left atrium is mildly dilated. The right atrium size is normal. The interatrial septum is intact with no evidence for an atrial septal defect. AORTIC VALVE The aortic valve is normal in structure. No aortic regurgitation is present. There is no aortic valvular stenosis. There is no aortic valvular vegetation. MITRAL VALVE Mitral annular calcification is mild. There is no evidence of mitral valve prolapse. There is no mitral valve stenosis. There is no mitral valve regurgitation noted. TRICUSPID VALVE The tricuspid valve is normal in structure. There is no tricuspid valve regurgitation noted. PULMONIC VALVE The pulmonic valve is not well visualized. There is mild pulmonic valvular regurgitation. GREAT VESSELS The aortic root is normal in size. PERICARDIAL EFFUSION There is no significant pericardial effusion. <Conclusion> Left ventricle systolic function is normal. The Ejection Fraction is 65-70%. No aortic regurgitation is present. There is no mitral valve regurgitation noted. There is no tricuspid valve regurgitation noted. There is mild pulmonic valvular regurgitation.
[2018-11-04 07:25] LABS: BASO % 0.6 % (0.0-2.0); EOS # 0.1 K/uL (0.0-0.7); EOS % 0.7 % (0.0-4.0); HEMOGLOBIN 15.1 g/dL (12.0-18.0); LYMPH # 2.7 K/uL (1.0-4.3); LYMPH % 36.9 % (20.0-40.0); MEAN CELL VOLUME 86.6 fL (80.0-94.0); MEAN CORPUSCULAR HEMOGLOBIN 28.7 pg (27.0-31.0); MEAN CORPUSCULAR HGB CONC 33.1 g/dL (33.0-37.0); MEAN PLATELET VOLUME 8.1 fL (7.2-11.7); MONO # 0.4 K/uL (0.0-0.8); NEUT # 4.1 K/uL (1.8-7.0); NEUT % 55.8 % (50.0-75.0); RBC 5.26 Mil/uL (4.40-5.90); RED CELL DISTRIBUTION WIDTH 14.2 % (11.5-14.5); WHITE BLOOD COUNT 7.3 K/uL (4.8-10.8)
[2018-11-04 07:51] LABS: ALB/GLOB RATIO 1.3 (1.0-2.1); ALBUMIN 4.6 g/dL (3.5-5.0); ALT/SGPT 63 U/L (21-72); AST/SGOT 61 U/L (17-59); BLOOD UREA NITROGEN 13 mg/dL (9-20); CALCIUM 9.3 mg/dl (8.6-10.4); GFR NON-AFRICAN AMERICAN > 60
--- NOTE | 2018-11-04 11:05 | PCM.PYCHPN ---
Psychiatric Progress Note - Psychiatric Progress Note Patient seen today, length of contact: 15 min Patient Chief Complaint: I am feeling depressed and suicidal.' Problems Identified/Issues Discussed: Patient was seen and evaluated, chart reviewed and discussed the staff. Patient reports some improvement in his mood but still reports feelings of hopelessness and helplessness. He reports improvement in the suicidal ideation. He denies symptoms of withdrawal. He takes medication but denies any side effects. Supportive therapy was given. Medication Change: Yes Medical Record Reviewed: Yes Mental Status Examination - Cognitive Function Orientation: Person, Place, Situation, Time Memory: Intact Attention: WNL Concentration: Poor Association: WNL Fund of Knowledge: Poor - Mood Mood: Depressed, Anxious - Affect Affect: Constricted, Depressed - Speech Speech: Soft - Formal Thought Process Formal Thought Process: No Impairment - Suicidal Ideation Suicidal Ideation: No - Homicidal Ideation Homicidal Ideation: No Goal/Treatment Plan - Goal/Treatment Plan Need for Continued Stay: Remain at risks for inpatient hospitalization Progress Toward Problem(s) and Goals/Treatment Plan: Major depressive disorder single episode severe without psychotic features CBT Psychoeducation Supportive therapy and group therapy Start medications: -Trazodone for insomnia -Hydroxyzine for anxiety -Paxil for depression -Neurontin for mood
[2018-11-05] MEDS ORDERED: Pneumococcal 23-Valent Vaccine IM ONE (10:00)
[2018-11-05 11:09] LABS: BASO # 0.1 K/uL (0.0-0.2); BASO % 0.5 % (0.0-2.0); EOS # 0.1 K/uL (0.0-0.7); EOS % 0.5 % (0.0-4.0); HEMOGLOBIN 15.3 g/dL (12.0-18.0); LYMPH # 4.1 K/uL (1.0-4.3); LYMPH % 34.7 % (20.0-40.0); MEAN CELL VOLUME 87.5 fL (80.0-94.0); MEAN CORPUSCULAR HEMOGLOBIN 27.9 pg (27.0-31.0); MEAN CORPUSCULAR HGB CONC 31.8 g/dL (33.0-37.0); MEAN PLATELET VOLUME 8.3 fL (7.2-11.7); MONO # 1.1 K/uL (0.0-0.8); MONO % 9.4 % (0.0-10.0); NEUT # 6.5 K/uL (1.8-7.0); NEUT % 54.9 % (50.0-75.0); NRBC % 0.1 % (0.0-2.0); RBC 5.5 Mil/uL (4.40-5.90); RED CELL DISTRIBUTION WIDTH 14.1 % (11.5-14.5)
[2018-11-05 11:11] LABS: WHITE BLOOD COUNT 11.9 K/uL (4.8-10.8)
[2018-11-05 11:25] LABS: ALB/GLOB RATIO 1.2 (1.0-2.1); ALBUMIN 4.9 g/dL (3.5-5.0); ALT/SGPT 59 U/L (21-72); AST/SGOT 51 U/L (17-59); BLOOD UREA NITROGEN 17 mg/dL (9-20); CALCIUM 9.6 mg/dl (8.6-10.4); GFR NON-AFRICAN AMERICAN > 60
--- NOTE | 2018-11-05 22:17 | CARD ---
APPROVED REPORT Date of service: 11/03/2018 EKG Measurement Heart [id number] <Conclusion> Sinus rhythm with premature atrial complexes T wave abnormality, consider lateral ischemia Prolonged QT Abnormal ECG
[2018-11-06 06:12] VITALS: BP 126/69; PULSE 76; TEMP 98.1
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
--- NOTE | 2018-11-07 12:16 | CARD ---
APPROVED REPORT Date of service: 11/02/2018 EKG Measurement Heart [id number] <Conclusion> Normal sinus rhythm Nonspecific T wave abnormality Abnormal ECG
--- NOTE | 2018-11-07 12:16 | CARD ---
APPROVED REPORT Date of service: 11/02/2018 EKG Measurement Heart [id number] <Conclusion> Normal sinus rhythm Nonspecific T wave abnormality Abnormal ECG
== END 2018-11-06 11:15 | disposition home or self-care (01) | DRG 430 ==
LOC: C.ER 11:43 → C.6T 18:20 → OBSVTOIN 11-03 19:36 → C.5E 11-03 21:42
PROVIDERS: ADMIT Psychiatry & Neurology Psychiatry; ATTEND Psychiatry & Neurology Psychiatry
DX: F32.2 Major depressive disorder, single episode, severe without psychotic features (principal); E87.70 Fluid overload, unspecified; G47.33 Obstructive sleep apnea (adult) (pediatric); R45.851 Suicidal ideations; E66.01 Morbid (severe) obesity due to excess calories; F41.9 Anxiety disorder, unspecified; G47.00 Insomnia, unspecified; J45.909 Unspecified asthma, uncomplicated; R07.89 Other chest pain; Z68.44 Body mass index [BMI] 60.0-69.9, adult; Z80.1 Family history of malignant neoplasm of trachea, bronchus and lung; Z82.5 Family history of asthma and other chronic lower respiratory diseases